=== PATIENT | male | born 1955 | race Caucasian/White ===

== ENCOUNTER 2019-12-24 11:15 | Outpatient (CLI) | payer MEDICARE, SELFPAY ==
--- NOTE | 2019-12-24 11:26 | MR_ITS ---
WS: [id number] MRI RIGHT ELBOW NONCONTRAST INDICATION: Right arm pain TECHNIQUE: MRI right elbow without gadolinium enhancement. Coronal T1, PD, and STIR imaging. Sagittal PD imaging. Axial T1, T2 and 3-D FSPGR imaging. FINDINGS: Susceptibility artifact along the radial tuberosity from presumed prior distal biceps tendo n repair with anchoring. Susceptibility artifact from hardware degrades images in this location. Norm al bone marrow signal in the distal humerus, radius, and ulna. Biceps tendon at the radial tuberosity demonstrates diffuse low signal with thickening likely due to chronic tendinopathy. . Tiny sliver of T2 signal abnormality in the distal tendon just prior to inser tion suspicious for tiny intrasubstance tear. Distal tendon is otherwise intact. Small joint effusion Mild degenerative arthritis right elbow. Normal olecranon. Normal olecranon bursa. Normal coronoid pr ocess. Radial head is normal in appearance. Normal radial collateral and ulnar collateral ligaments. Extensor and flexor tendon origins are normal. Trochlea and capitellum are normal in appearance. MR/MR elbow RT wo con* [id number] IMPRESSION: 1. Susceptibility artifact in the radial tuberosity from prior biceps tendon r epair with hardware. 2. Biceps tendon appears thickened but grossly intact likely due to chronic te ndinopathy. Tiny focus of increased T2 signal in the distal tendon just proxima l to insertion likely represents a tiny intrasubstance tear. 3. Elbow is otherwise normal in appearance with normal bone marrow signal. Mil d degenerative arthritis. 4. Radial and ulnar collateral ligaments are intact. Common extensor and flexo r tendon origins are intact. 5. Normal olecranon.
== END 2019-12-24 11:16 | disposition home or self-care (01) ==
PROVIDERS: PCP Nurse Practitioner Family; Visit Provider Nurse Practitioner Family
DX: M79.601 Pain in right arm (principal)
CPT/HCPCS: 73221

== ENCOUNTER → 2020-04-20 14:42 | Outpatient (BNVA) | payer MEDICARE, SELFPAY | PROVIDERS: PCP Nurse Practitioner Family; Referring Provider Nurse Practitioner Family; Visit Provider Specialist | DX: M25.521 Pain in right elbow (principal) | CPT/HCPCS: 73080 ==

== ENCOUNTER 2020-05-02 15:38 | Outpatient (RCR) | payer MEDICARE, SELFPAY | END 2020-05-23 23:59 | disposition home or self-care (01) | LOC: SPT 15:38 | PROVIDERS: PCP Nurse Practitioner Family; Referring Provider Specialist; Visit Provider Specialist | DX: M75.21 Bicipital tendinitis, right shoulder (principal) | CPT/HCPCS: 97110; 97161 ==

== ENCOUNTER 2020-05-24 06:00 | Outpatient (RCR) | payer MEDICARE, SELFPAY | END 2020-06-22 23:59 | disposition home or self-care (01) | LOC: SPT 06:00 | PROVIDERS: PCP Nurse Practitioner Family; Referring Provider Specialist; Visit Provider Specialist | DX: M75.21 Bicipital tendinitis, right shoulder (principal) | CPT/HCPCS: 97110 ==

== ENCOUNTER 2020-06-23 06:00 | Outpatient (RCR) | payer MEDICARE, SELFPAY | END 2020-07-21 23:00 | disposition home or self-care (01) | LOC: SPT 06:00 | PROVIDERS: PCP Nurse Practitioner Family; Referring Provider Specialist; Visit Provider Specialist | DX: M75.21 Bicipital tendinitis, right shoulder (principal) | CPT/HCPCS: 97110 ==

== ENCOUNTER → 2023-02-15 10:20 | Outpatient (BNVA) | payer MEDICARE, SELFPAY | PROVIDERS: PCP Clinical Nurse Specialist Adult Health; Visit Provider Clinical Nurse Specialist Adult Health | DX: Z00.00 Encounter for general adult medical examination without abnormal findings (principal); J30.2 Other seasonal allergic rhinitis; Z13.6 Encounter for screening for cardiovascular disorders | CPT/HCPCS: 80053; 80061; 83036; 85025 ==

== ENCOUNTER 2023-05-06 10:27 | Outpatient (CLI) | payer MEDICARE, SELFPAY ==
--- NOTE | 2023-05-06 10:38 | XRR_ITS ---
PROCEDURE INFORMATION: Exam: XR Left Knee Exam date and time: 05/06/2023 10:41 AM Age: 67 years old Clinical indication: Patient HX: Patient has medial side pain on left knee for 5 weeks; Additional info: Left knee pain TECHNIQUE: Imaging protocol: Radiologic exam of the left knee. Views: 3 views. COMPARISON: No relevant prior studies available. FINDINGS: Bones/joints: No acute fracture or dislocation. Mineralization is normal. Joint spacing and alignment are maintained. Soft tissues: Unremarkable. XR/XR knee LT 3V* [id number] IMPRESSION: No acute findings.
== END 2023-05-06 10:28 | disposition home or self-care (01) ==
PROVIDERS: PCP Clinical Nurse Specialist Adult Health; Visit Provider Clinical Nurse Specialist Adult Health
DX: M25.562 Pain in left knee (principal); M25.561 Pain in right knee
CPT/HCPCS: 73562; 81003

== ENCOUNTER → 2024-04-13 09:53 | Outpatient (BNVA) | payer MEDICARE, SELFPAY | PROVIDERS: PCP Clinical Nurse Specialist Adult Health; Visit Provider Clinical Nurse Specialist Adult Health | DX: I10 Essential (primary) hypertension (principal); S90.569A Insect bite (nonvenomous), unspecified ankle, initial encounter; W57.XXXA Bitten or stung by nonvenomous insect and other nonvenomous arthropods, initial encounter | CPT/HCPCS: 80053; 80061; 85025; 86618; 86666; 86757 ==

== ENCOUNTER → 2025-05-05 08:24 | Outpatient (BNVA) | payer MEDICARE, SELFPAY | PROVIDERS: PCP Clinical Nurse Specialist Adult Health; Visit Provider Clinical Nurse Specialist Adult Health | DX: Z12.5 Encounter for screening for malignant neoplasm of prostate (principal); I10 Essential (primary) hypertension | CPT/HCPCS: 80053; 80061; 81000; 85025; G0103 ==

== ENCOUNTER 2025-05-17 15:29 | Outpatient (CLI) | payer MEDICARE, SELFPAY ==
--- NOTE | 2025-05-17 15:30 | XR_ITS ---
WS: [id number] SCREENING DEXA SCAN [employer] [facility] CLINICAL INFORMATION: M41.9 - Scoliosis, unspecified COMPARISON: None. FINDINGS: The L1-L4 bone mineral density measures 1.567 g/cm2. This corresponds to a T score score of 2.9 and Z score of 3.1. Left femoral neck bone mineral density measures 1.119 g/cm2. This corresponds to a T score of 0.1 and Z score of 0.6. Right femoral neck bone mineral density measures 1.113 g/cm2. This corresponds to a T score 0.1of and Z score of 0.6. Mean femoral neck bone mineral density measures 1.116 g/cm2. This corresponds to a T score of 0.1 and Z score of 0.6. XR/XR DEXA axial skeleton* [id number] IMPRESSION: Normal bone mineralization. Patient's FRAX calculated 10 year probability for major osteoporotic fracture i s 4.5% and osteoporotic hip fracture is 0.5%.
== END 2025-05-17 15:30 | disposition home or self-care (01) ==
LOC: RAD 15:30
PROVIDERS: PCP Clinical Nurse Specialist Adult Health; Visit Provider Clinical Nurse Specialist Adult Health
DX: Z13.820 Encounter for screening for osteoporosis (principal); M41.9 Scoliosis, unspecified
CPT/HCPCS: 77080; 82040; 84270; 84403